=== PATIENT | female | born 1995 | race Caucasian/White ===

== ENCOUNTER 2018-11-09 17:22 | Inpatient (IN) | payer BC, OTHER ==
[~2018-11-09] VITALS: Ht 160 cm; Wt 52.2 kg
--- NOTE | 2018-11-09 17:00 | NUR ---
Preadmission Note: Pt seen in intake office. Pt appears mildly intoxicated but is AO and is able to answer assessment questions. Pt is unorganized and noted with anxiety. Pt states she is here for Heroin, Fentanyl, Methamphetamines. Pt currently c/o nausea and proceeded to vomit in the garbage bin. Pt stated that her current nausea was not a withdrawal symptom and she only felt nauseous because of a smell. BP 116/65 HR 106 RR 16 Pain 0/10. Will admit to [facility].
[2018-11-09] MEDS ORDERED: SRC OPIOID WITHDRAWAL ADMITTING PROTOCOL XX PRN (17:30)
[2018-11-09] MEDS ORDERED: GABA-532 PO (17:37)
[2018-11-09] MEDS ORDERED: LAMO25TA5 PO (17:37)
[2018-11-09] MEDS ORDERED: TRAZ-214 PO (17:39)
[2018-11-09] MEDS ORDERED: HYDR-3026 PO (17:39)
[2018-11-09] MEDS ORDERED: ATOM10CA PO (17:39)
[2018-11-09] MEDS ORDERED: ONDANSETRON 4 MG/2 ML VIAL IM PRN (17:45)
[2018-11-09] MEDS ORDERED: IBUPROFEN 600 MG TABLET PO PRN (17:45)
[2018-11-09] MEDS ORDERED: MIRALAX 17 GM POWD.PACK PO PRN (17:45)
[2018-11-09] MEDS ORDERED: ONDANSETRON ODT 4 MG TAB.RAPDIS SL PRN (17:45)
[2018-11-09] MEDS ORDERED: MAGNESIUM HYDROXIDE 30 ML LIQUID UDC PO PRN (17:45)
[2018-11-09] MEDS ORDERED: LOPERAMIDE HCL 2 MG CAPSULE PO PRN ×2 (17:45)
[2018-11-09] MEDS ORDERED: MAG HYDROX/AL HYDROX/SIMETH 30 ML LIQUID UDC PO PRN (17:45)
[2018-11-09] MEDS ORDERED: diphenhydrAMINE 50 MG CAPSULE PO PRN (17:45)
[2018-11-09] MEDS ORDERED: HYDROXYZINE PAMOATE 25 MG CAPSULE PO PRN (17:45)
[2018-11-09] MEDS ORDERED: ACETAMINOPHEN 325 MG TABLET PO PRN (17:45)
[2018-11-09] MEDS ORDERED: LORAZEPAM 1 MG TABLET PO PRN (18:45)
--- NOTE | 2018-11-09 19:09 | NUR ---
ADMISSION NOTE Pt is a 23 yr old female, AA&Ox4. Pt is presenting herself to [facility] for heroin and Fentanyl use. Pt would also use meth daily. Pt arrived on the unit at 1757. Pt is observed with anxiety m/b pt is observed fidgety. Pts pupils are noted pin point. Pt states she is not going through withdrawal at this time due to last use heroin was at 1500 but states her withdrawal symptoms are hot/cold chills, nausea, vomiting, muscle aches, loss of appetite and stuffy nose. Body check was complete; Pt is noted with track archer on both AC and a superficial healing burn albert on left forearm 2cm x 1cm. Pt states she was at [facility] on 11/02/18 for Sepsis and was given IV antibiotics and IV fluids. Pt states she was in there for 3 days. Pt states she has PMH of Sepsis on 11/02/18, Herpes Simplex 2, OCD, PTSD, ADHD, Anxiety and Depression and is prescribed Gabapentin, Lamictal, Strattera, and Trazodone. All home medication was reconciled. Pt states she has Sx hx of Tonsillectomy at the age of 14. Pt also states of overdosing x1 and was given Narcan from her friends. Pt states of suicide ideation 2016 and was taken to [facility] by her mother for detox. Pt states, I was super depressed and suicidal that they placed me on 5150. Pt denies any suicide attempt but pt states I used to self inflict when I was young. Pt currently denies any SI at this time. Pt denies any PCP or Psychiatrist. Pt denies any hx of sz. Substance use: 1. Fentanyl Pt states she started using Fentanyl 3 months ago via smoke or IV. Pt verbalized of using 0.5g IV/Smoke daily. Last use was 11/08/18 at 2200. Pt states I dont know how much but it was probably less than 0.5g. 2. Heroin- Pt states she began smoking or using IV heroin when she was 19 yrs old. Pt states for the past 3 months she has been either smoking or using IV heroin 1-1.5g daily. Last use was today on 11/09/18 at 1500, pt states she used 0.5gIV. 3. Meth Pt states she began using Meth either via smoked or IV since she was 20 yrs old. Pt states for the past 3 months she has been using 1g of Meth via smoke/IV. Last use was today 11/09/18 at 1500, pt states she used 0.25g IV. Pt states she has been in multiple treatments including [facility] 3 years and was sober for 7 months which was her longest sobriety. Pt then relapsed and went in and out of [facility] for 2 years. Pt states last treatment center was [facility] in July 2018 and was inpatient for 1 month then was transferred to [facility] for another month. Pt states she relapsed because she felt lonely and isolated. Pt states she wants to get sober since using substances has affected her relationship with her family and states, they kicked me out and cut me off. Pt states she has been homeless and unemployed. Pt states, Im fed up and miserable and homeless. Pt verbalized her goal after treatment is to get a job and get back into society. Reported to Dr. العلي with new order for PRN Subutex for s/s of w/d. New order was noted and carried out. Pt is on fall precautions. Pt was educated on medication regimen and plan of care. Pt was able to verbalize understanding. Safety precautions observed. Call light is within reach. Addendum: 11/09/18 at 2011 by JUAN DOWNING LVN Clarification: Pt states she was using Xanax 1mg once a week for the past 2 months. Last use was on 11/07/18, pt states she used 1mg PO. Pt also states she Bariatric Surgery at the age of [age] years old.
[2018-11-09 20:00] VITALS: BP 99/54
--- NOTE | 2018-11-09 20:00 | NUR ---
Start of Shift Patient asleep on bed, arousable, noted to have some intoxication from substances. Patient with lethargy, appears guarded and with low energy. Patient also noted to be anxious and disheveled. She avoids eye contact and speaks in a soft voice. Patient verbalized wanting to rest. No c/o pain at this time. Fall, universal, seizure and safety prec in place. Call light within reach. Last COWS=4. Will continue to monitor.
[2018-11-09] MEDS: TRAZODONE 100 MG TABLET PO SCH (21:18)
[2018-11-10] VITALS: BP 92/61
--- NOTE | 2018-11-10 | NUR ---
COWS=5 Patient continues to be melancholic and depressed. No suicidal ideation noted. Patient also appears to have low energy, with flat affect and avoids conversation and eye contact.
[2018-11-10 03:12] LABS: BASOPHILS % (AUTO) 0.3 % (0.0-2.0); EOSINOPHILS # (AUTO) 0.1 K/uL (0.0-0.7); EOSINOPHILS % (AUTO) 1.4 % (0.0-7.0); HEMATOCRIT 39.2 % (31.2-41.9); HEMOGLOBIN 13.2 g/dL (10.9-14.3); LYMPHOCYTES % (AUTO) 62.1 % (20.5-51.5); MEAN CORPUSCULAR HEMOGLOBIN 29.4 uug (24.7-32.8); MEAN CORPUSCULAR HGB CONC 34 g/dL (32.3-35.6); MEAN CORPUSCULAR VOLUME 87.4 fL (75.5-95.3); MONOCYTES # (AUTO) 0.4 K/uL (2.0-10.0); MONOCYTES % (AUTO) 7.3 % (0.0-11.0); NEUTROPHILS # (AUTO) 1.4 K/uL (1.8-8.9); NEUTROPHILS % (AUTO) 28.9 % (38.5-71.5); PLATELET COUNT (AUTO) 388 K/uL (179-408); RED BLOOD CELL COUNT(AUTO) 4.48 MIL/uL (3.63-4.92); WHITE BLOOD COUNT (AUTO) 4.9 K/uL (3.8-11.8)
[2018-11-10 03:19] LABS: *URINE HCG, QUAL NEGATIVE (NEGATIVE)
[2018-11-10 03:24] LABS: *AMPHETAMINE, URINE POSITIVE (NEGATIVE); *BARBITURATE, URINE NEGATIVE (NEGATIVE); *CANNABINOID, URINE POSITIVE (NEGATIVE); *COCCAINE, URINE NEGATIVE (NEGATIVE); *OPIATE, URINE POSITIVE (NEGATIVE); *PHENCYCLIDINE SCREEN,URINE NEGATIVE (NEGATIVE)
[2018-11-10 03:28] LABS: ALANINE AMINOTRANSFERASE 24 U/L (14-59); ALKALINE PHOSPHATASE 94 U/L (50-136); ASPARTATE AMINOTRANSFERASE 19 U/L (15-37); BILIRUBIN,TOTAL 0.3 mg/dL (0.2-1.0); CARBON DIOXIDE 31 mmol/L (21-32); CHLORIDE 102 mmol/L (98-107); CREATININE 0.8 mg/dL (0.6-1.3); GLUCOSE 109 mg/dL (74-106); MAGNESIUM 1.9 mg/dL (1.8-2.4); POTASSIUM 4.1 mmol/L (3.5-5.1); TOTAL PROTEIN, SERUM 7.8 g/dL (6.4-8.2); UREA NITROGEN, BLOOD 15 mg/dL (7-18)
[2018-11-10] MEDS: METHOCARBAMOL 750 MG TABLET PO PRN ×2 (03:30→17:30)
[2018-11-10] MEDS: BUPRENORPHINE HCL 2 MG TAB.SUBL SL PRN ×2 (03:30→10:02)
--- NOTE | 2018-11-10 03:30 | NUR ---
PRN Subutex and Robaxin Patient c/o increasing anxiety and with piloerection and tremors noted. Patient also verbalized generalized muscle pain=7/10. COWS=14. Administered Subutex 4 mg SL PRN and Robaxin 750 mg PO PRN. Will reassess.
[2018-11-10 03:31] LABS: ETHANOL < 3 MG/DL (0-0)
[2018-11-10 04:00] VITALS: BP 101/64
--- NOTE | 2018-11-10 04:00 | NUR ---
Subutex reassess Patient verbalized relief from anxiety and is noted to have less tremors. COWS=7.
--- NOTE | 2018-11-10 04:30 | NUR ---
Flacoaxin reassess Patient verbalized that pain level=2/10.
[2018-11-10] MEDS: CLONIDINE HCL 0.1 MG TABLET PO PRN ×2 (06:08→17:30)
--- NOTE | 2018-11-10 06:09 | NUR ---
PRN Motrin and Clonidine Patient c/o headache=6/10 and restlessness and anxiety. Administered Motrin 600 mg PO PRN and Clonidine 0.1 mg PO PRN. Will reassess.
--- NOTE | 2018-11-10 07:08 | NUR ---
Motrin and Clonidine reassess Patient's pain level=3/10 and verbalized "some" relief from anxiety and restlessness.
--- NOTE | 2018-11-10 07:16 | NUR ---
End of Shift Patient continues to appear guarded and avoidant with conversation. Patient also noted to be anxious and disheveled. She verbalized having intermittent nausea and is noted to be melancholic. PRN Subutex, Robaxin, Clonidine and Motrin administered during the shift. Fall, universal, seizure and safety prec in place. Call light within reach. Last COWS=7 and slept for 9 hours. Endorsed to AM shift nurse for continuity of care.
--- NOTE | 2018-11-10 07:40 | NUR ---
START OF SHIFT Pt is a 23 yr old female, A&Ox4. pt was admitted on 11/09/18 for Opiate withdrawal and is on PRN's for s/s of w/d. Received report from welder 2nd shift nurse. Pt received Subutex PRN, Robaxin PRN, Clonidine PRN and Motrin PRN during the night. Medication was effective. Last COWS score was 7. Pt slept for 9 hrs. Pt is currently in bed sleeping with respirations even and unlabored. Pt is noted with restless legs. Skin is intact, warm and clammy to touch. Multiple open bottles of fluid is noted at bedside table. Pt is on fall precautions. Call light is within reach. Will continue to monitor.
[2018-11-10 08:07] VITALS: BP 90/43
[2018-11-10] MEDS ORDERED: TUBERCULIN,PURIF.PROT.DERIV. 5 TU/0.1 ML TEST ID ONE (09:00)
[2018-11-10] MEDS: MULTIVITAMINS,THERAPEUTIC TABLET PO SCH (10:02)
--- NOTE | 2018-11-10 10:02 | NUR ---
PRN GIVEN Pt was c/o anxiety, agitation, sweats, cold chills, muscle aches and stuffy nose. Pt is noted with fine tremors on BUE. COWS score was 13. Pt was given Subutex 4mg SL PRN as ordered. Encouraged increase fluid intake. Will continue to monitor.
--- NOTE | 2018-11-10 11:02 | NUR ---
PRN RE-ASSESSMENT Subutex 4ml SL PRN was effective. COWS score is 9. Pt continues to c/o anxiety, body aches and chills but states "I feel better now". Will continue to monitor.
[2018-11-10 12:00] VITALS: BP 96/63
--- NOTE | 2018-11-10 12:00 | NUR ---
COWS ASSESSMENT Pt is c/o anxiety, body aches, sweats, chills and stuffy nose. COWS score is 11. Encourage increase fluid intake. Will continue to monitor.
--- NOTE | 2018-11-10 12:18 | NUR ---
Therapist prompted client to attend group therapy.
[2018-11-10] MEDS ORDERED: 5 DAY TAPER BUPRENORPHINE -SERENITY PROTOCOL SL PRN (12:45)
[2018-11-10] MEDS: BUPRENORPHINE HCL 2 MG TAB.SUBL SL SCH ×3 (13:40→20:43)
[2018-11-10] MEDS: GABAPENTIN 300 MG CAPSULE PO SCH ×2 (14:46→17:30)
[2018-11-10] MEDS: buPROPion XL 150 MG TAB.SR.24H PO SCH (14:46)
[2018-11-10 16:00] VITALS: BP 121/74
--- NOTE | 2018-11-10 17:30 | NUR ---
PRN GIVEN Pt was c/o increase anxiety, sweats, chills, restlessness, and muscle aches. Pt was given Clonidine 0.1mg PO PRN and Robaxin 750mg PO PRN as ordered. Encouraged increase fluid intake. COWS score was 14. Will continue to monitor.
--- NOTE | 2018-11-10 19:10 | NUR ---
END OF SHIFT Pt is a 23 yr old female, AA&Ox4. Pt was admitted on 11/09/18 for Opiate withdrawal and started on 5 day Subutex taper as ordered. Pt has been cooperative with medication regimen and plan of care. Pt was observed attending group therapy. Pt was c/o increase anxiety, agitation, restlessness, muscle aches, cold/hot chills, stuffy nose and teary eyes. Pt was observed with fine tremors on BUE, fidgety, restless legs and observed with flat affect. Pt was given Subutex 4mg SL PRN in the morning for COWS score of 13 and Clonidine PRN, and Robaxin at 1730. Medication was effective. Pt was encouraged increase fluid intake. Endorsed to dependency counselor nurse to continue with care.
--- NOTE | 2018-11-10 19:30 | NUR ---
Start of shift note Patient is a 23 year old female admitted on 11/09/18 for medically supervised for opiate withdrawal. Pt is on fall precautions. Pt is on a 5 day Subutex taper started today 11/10/18. Pt's last COWS was 14. Per endorsement pt had PRN Subutex, Clonidine and Robaxin. Pt has been participating in group. Upon rounds pt was noted in bed resting, explain plan of care and she verbalized understanding. Pt is withdrawn, cooperative, depressed and flat affect. Safety measures are in place bed locked in low position, side rails up x2 and call light within reach. Will continue to monitor.
[2018-11-10 20:00] VITALS: BP 97/48
--- NOTE | 2018-11-10 20:00 | NUR ---
COWS Assessment Pt is presenting with withdrawal s/s: tremors, cold and cold flashes, chills, and runny nose. Pt's COWS is 12. Safety measures in place will continue to monitor.
[2018-11-10] MEDS: LAMOTRIGINE 25 MG TABLET PO SCH (20:43)
[2018-11-10] MEDS: TRAZODONE 100 MG TABLET PO SCH (20:43)
--- NOTE | 2018-11-10 20:43 | NUR ---
PRN Benadryl Pt is presenting with mild erythema on left arm, pt stated "my watch irritated my arm". Administered PRN Benadryl and she tolerated well. Will continue to monitor.
--- NOTE | 2018-11-10 21:43 | NUR ---
PRN Benadryl Reassessment Pt had decreased erythema and no itching was present. Pt stated medication was helpful. Safety measures in place will continue to monitor.
--- NOTE | 2018-11-11 | NUR ---
COWS Deferred Patient is resting in bed with eyes closed, breathing is even and unlabored. Per protocol COWS is to be assessed while pt is awake. Safety measures in place and will continue to monitor.
--- NOTE | 2018-11-11 07:12 | NUR ---
End of shift note Patient is a 23 year old female admitted on 11/09/18 for medically supervised for opiate withdrawal. Pt is on fall precautions. Pt is on a 5 day Subutex taper started today 11/10/18. Pt's last COWS was 12. Pt had PRN Benadryl. Pt was compliant with plan of care. Pt slept for 9 hours and had a total intake 1,153 ml. Pt voided x3 and had no bowel movements during this shift. Safety measures are in place bed locked in low position, side rails up x2 and call light within reach. Will endorse to day shift.
--- NOTE | 2018-11-11 07:40 | NUR ---
START OF SHIFT 305 Received report from security shift supervisor nurse. Pt is lying in bed resting and easily arousable. She is a 23 yo female admitted to [facility] on 11/09 for Opiate withdrawal. She is A&O and ambulatory. She is on day 2 of a 5 day Subutex taper. She received PRN Benadryl on security shift supervisor. Last COWS was 12 and she slept for 9 hours. Safety measures in place.
[2018-11-11 08:00] VITALS: BP 110/67
[2018-11-11 08:06] LABS: HEPATITIS B SURFACE AG Negative (Negative)
--- NOTE | 2018-11-11 09:04 | NUR ---
COWS Pt has leg aches, chills, difficulty sitting still, dilated pupils, runny nose, and goose bumps. Her affect is flat and mood depressed. COWS score 12.
[2018-11-11] MEDS: MULTIVITAMINS,THERAPEUTIC TABLET PO SCH (09:11)
[2018-11-11] MEDS: buPROPion XL 150 MG TAB.SR.24H PO SCH (09:11)
[2018-11-11] MEDS: GABAPENTIN 300 MG CAPSULE PO SCH ×3 (09:11→17:32)
[2018-11-11] MEDS: METHOCARBAMOL 750 MG TABLET PO PRN (09:11)
--- NOTE | 2018-11-11 09:11 | NUR ---
PRN Robaxin Pt reports leg aches 02/16. PRN Robaxin administered.
[2018-11-11] MEDS: BUPRENORPHINE HCL 2 MG TAB.SUBL SL SCH ×3 (09:13→20:33)
--- NOTE | 2018-11-11 10:15 | NUR ---
PRN Robaxin reassessment PRN Robaxin effective. Pt reports body aches are relieved.
[2018-11-11 12:30] VITALS: BP 141/91
--- NOTE | 2018-11-11 12:52 | NUR ---
Therapist prompted client to attend daily group therapy sessions.
[2018-11-11 14:20] VITALS: BP 125/63
[2018-11-11 16:20] VITALS: BP 125/63
--- NOTE | 2018-11-11 19:30 | NUR ---
END OF SHIFT 305 Report provided to maintenance technician 3rd shift nurse. Pt is attending a group meeting. She is a 23 yo female admitted to [facility] on 11/09 for Opiate withdrawal. She is A&O and ambulatory. Today is day 2 of a 5 day Subutex taper. PRN Robaxin administered. Last COWS was 9. Safety measures in place.
--- NOTE | 2018-11-11 19:30 | NUR ---
Start of Shift Patient Received. Patient is a 23 year old female that continues on a modified Subutex taper for signs and symptoms of Opiate withdrawal. Patient received PRN Robaxin for increased body aches with medication noted to be effective. Last noted COWS 9. Upon rounds patient is noted in her room awake alert and verbally responsive. She is noted to be cleaning her room and states "I'm just trying to keep busy." She is noted to be restless, verbalizes racing thoughts, with worried, depressed affect. Patient is able to verbalize increased anxiety, agitation, intermittent body aches, tremors, chills, sweats, and restlessness. Patient is able to verbalize that medication taper has been effective in minimizing signs and symptoms of withdrawal. Reviewed 2100 medications with patient and she was able to verbalize understanding. All needs attended to promptly. Will continue plan of care as ordered.
[2018-11-11 20:29] VITALS: BP 115/67
--- NOTE | 2018-11-11 20:30 | NUR ---
COWS Assessment Patient continues on a modified Subutex taper for signs and symptoms of withdrawal. She appears worried with depressed affect. She is able to verbalize increased anxiety, restlessness, agitation, racing thoughts, intermittent body aches, tremors, chills, sweats, and insomnia. COWS noted to be 11. Routine medications administered as per order. Will continue to monitor.
[2018-11-11] MEDS: LAMOTRIGINE 25 MG TABLET PO SCH (20:32)
[2018-11-11] MEDS: TRAZODONE 100 MG TABLET PO SCH (20:32)
--- NOTE | 2018-11-12 00:06 | NUR ---
COWS Assessment and Vitals Patient is noted in bed with eyes closed. Breathing even and non labored. No signs of restlessness or facial grimacing noted. Vitals refused. COWS not able to be completed as per order. Will continue to monitor.
--- NOTE | 2018-11-12 04:45 | NUR ---
Vitals and COWS Assessment Patient is noted in bed with eyes closed. No signs of restlessness or facial grimacing noted. Breathing even and non labored. Vitals refused. COWS not able to be completed as per order. Will continue to monitor.
--- NOTE | 2018-11-12 07:04 | NUR ---
End of Shift Patient is in bed with eye closed. Breathing even and non labored. No signs of restlessness or facial grimacing noted. Patient is a 23 year old female that continues on a modified Subutex taper for signs and symptoms of Opiate withdrawal. No PRN medications administered. Last noted COWS11. Patient noted to sleep a total of 9 hours. Patient is noted to be restless with worried, depressed affect. Patient is able to verbalize increased anxiety, agitation, intermittent body aches, tremors, chills, sweats, and restlessness. All needs attended to promptly. Will endorse to continue plan of care as ordered.
--- NOTE | 2018-11-12 07:34 | NUR ---
BEGINNING OF SHIFT Patient endorsement report received from night supervisor nurse, all pertinent information was discussed. Patient currently with admitting dx: opiate withdrawal, ongoing 5 day subutex taper as ordered. Patient scheduled to begin day 3 of taper. Last COW score of: 11. Received patient in bed with eyes closed, respirations even and unlabored, responsive to verbal stimuli, will educate patient regarding plan of care for the day and medication regimen. Safety measures are in place. call light with in reach, will continue to monitor closely.
[2018-11-12] MEDS ORDERED: BUPRENORPHINE HCL 2 MG TAB.SUBL SL SCH (09:00)
[2018-11-12 09:16] VITALS: BP 90/60
[2018-11-12] MEDS: buPROPion XL 150 MG TAB.SR.24H PO SCH (09:18)
[2018-11-12] MEDS: GABAPENTIN 300 MG CAPSULE PO SCH ×3 (09:18→17:52)
[2018-11-12] MEDS: MULTIVITAMINS,THERAPEUTIC TABLET PO SCH (09:18)
[2018-11-12 12:46] VITALS: BP 115/73
[2018-11-12] MEDS ORDERED: OXYMETAZOLINE NASAL 0.05% 15 ML SPRAY NS PRN (13:15)
[2018-11-12] MEDS: BUPRENORPHINE HCL 2 MG TAB.SUBL SL SCH ×2 (14:58→21:56)
[2018-11-12 17:08] VITALS: BP 112/70
--- NOTE | 2018-11-12 18:56 | NUR ---
END OF SHIFT Patient continues under close observation, ongoing Subutex taper as ordered, currently on day 3 of taper. Received no PRN medications during shift. Vital signs WNL. Patient was noted the following s/sx of withdrawal during shift: elevated heart rate, c/o chills, difficulty sitting still, enlarged pupils, mild bone and joint aches, tremors that can be felt but not seen, irritable, and anxiety, last COW score of: 9. Received no PRN medications during shift. Continues under close observation, Encouraged to attend group therapies/sessions to learn new coping skills to prevent relapse. Denies SI/HI. Safety measures are in place. Call light kept with in reach, will continue to monitor. Patient endorsed to phone screener nurse, all pertinent information was discussed.
--- NOTE | 2018-11-12 19:30 | NUR ---
Start of Shift Patient Received. Patient is a 24 year old female that continues on a modified Subutex taper for Opiate withdrawals. No PRN medications administered. Last noted COWS 9. Patient has been noted to be compliant with group and social activities. She continues to be monitored for increased anxiety, agitation, intermittent body aches, tremors, chills, sweats, and restlessness. Upon rounds patient is noted in the activities room participating in a group meeting. All needs attended to promptly. Will continue plan of care as ordered.
--- NOTE | 2018-11-12 20:30 | NUR ---
COWS Assessment Patient continues on a modified Subutex taper for signs and symptoms of withdrawal. She appears worried with depressed affect. She is able to verbalize increased anxiety, restlessness, agitation, racing thoughts, tremulous to touch, chills, sweats, and insomnia. COWS noted to be 9. Routine medications to be administered as per order. Will continue to monitor.
[2018-11-12 20:45] VITALS: BP 110/60
[2018-11-12] MEDS: TRAZODONE 100 MG TABLET PO SCH (21:56)
[2018-11-12] MEDS: LAMOTRIGINE 25 MG TABLET PO SCH (21:56)
--- NOTE | 2018-11-13 00:57 | NUR ---
COWS Assessment Patient is noted in bed with eyes closed. Breathing even and non labored. No signs of restlessness or facial grimacing noted. Vitals refused. COWS not able to be completed as per ordered. Will continue to monitor.
--- NOTE | 2018-11-13 04:24 | NUR ---
Vitals and COWS Assessment Patient is noted in bed with eyes closed. No signs of restlessness or facial grimacing noted. Breathing even and non labored. Vitals refused. COWS not able to be completed as per ordered. Will continue to monitor.
--- NOTE | 2018-11-13 07:03 | NUR ---
End of Shift Patient is in bed with eyes closed. Breathing even and non labored. No signs of facial grimacing or restlessness noted. Patient is a 24 year old female that continues on a modified Subutex taper for Opiate withdrawals. No PRN medications administered. Last noted COWS 9. Patient noted to sleep a total of 7 hours. Patient has been noted to be compliant with group and social activities. She continues to be monitored for increased anxiety, agitation, intermittent body aches, tremors, chills, sweats, and restlessness. All needs attended to promptly. Will endorse to continue plan of care as ordered.
--- NOTE | 2018-11-13 07:50 | NUR ---
Start of shift note; Received report from night nurse. Patient is a 23 year old female admitted on 11/09/17 for Opiate withdrawals. Patient was started on a 5 day Subutex taper to help reduce withdrawal symptoms. No PRN medications given. Patient's last COWS score is 9. Patient slept for 7 hours. Patient is currently asleep , respirations of 18. All safety measures secured. Will closely monitor patient.
[2018-11-13 08:00] VITALS: BP 96/62
--- NOTE | 2018-11-13 08:00 | NUR ---
CIWA assessment; Patient is AOX4, patient's current CIWA is 10 manifested by intermittent sweats, anxiety, agitation, tremors, stomach cramps and fatigue. Patient remains on Subutex taper to help reduce withdrawal symptoms. All safety measures secured. Will continue to monitor patient. Addendum: 11/13/18 at 1239 by KINGS MCKEON RN Clarification: COWS score of 9
[2018-11-13] MEDS: buPROPion XL 150 MG TAB.SR.24H PO SCH (09:30)
[2018-11-13] MEDS: BUPRENORPHINE HCL 2 MG TAB.SUBL SL SCH ×3 (09:30→20:51)
[2018-11-13] MEDS: MULTIVITAMINS,THERAPEUTIC TABLET PO SCH (09:30)
[2018-11-13] MEDS: GABAPENTIN 300 MG CAPSULE PO SCH ×3 (09:30→17:15)
[2018-11-13 12:00] VITALS: BP 110/68
[2018-11-13] MEDS: METHOCARBAMOL 750 MG TABLET PO PRN (12:19)
--- NOTE | 2018-11-13 12:19 | NUR ---
PRN medication; Patient is complaining of muscle aches, PRN Robaxin 750mg PO given for muscle aches. Will continue to monitor patient.
[2018-11-13] MEDS ORDERED: ACYCLOVIR 200 MG CAPSULE PO SCH (13:00)
--- NOTE | 2018-11-13 13:19 | NUR ---
Re-assessment; Patient verbalized improvement of muscle aches. PRN Robaxin noted to be effective.
[2018-11-13] MEDS: ACYCLOVIR 200 MG CAPSULE PO SCH ×2 (13:57→20:51)
[2018-11-13 16:00] VITALS: BP 112/88
--- NOTE | 2018-11-13 18:39 | NUR ---
End of shift note; Patient is AOX4, patient's last COWS score is 9 manifested by intermittent sweats, anxiety, agitation, tremors, stomach cramps and fatigue. Medications were effective in reducing withdrawal symptoms. Patient received PRN Robaxin for muscle aches noted to be effective. Patient remained compliant with treatment plan and medication regime. Patient participated in group activities and therapies. All safety measures secured. Met all needs.
--- NOTE | 2018-11-13 19:30 | NUR ---
START OF SHIFT Patient is a 23-year-old female admitted on 11/09/18 for opiate withdrawal. Patient is currently on a 5-day Subutex taper, tolerating well; last dose scheduled for tomorrow morning. Patient's last COWS was 9 per endorsement. Patient received PRN Robaxin today, noted to be effective. Upon assessment, patient is anxious and restless. Patient complains of difficulty sleeping and and mild nausea with no emesis, but states that she will notify nurse if nausea worsens. Patient continues to receive oral antivirals for active herpes simplex 2. Patient is on fall precautions with no prior history of seizure activity. Safety measures in place, side rails up x2, bed locked in low position, call light within reach. Will continue to monitor.
[2018-11-13 20:00] VITALS: BP 103/61
[2018-11-13] MEDS: TRIAMCINOLONE ACET 0.025% OINT 15 GM TUBE TOP PRN (20:50)
--- NOTE | 2018-11-13 20:50 | NUR ---
PRN TRIAMCINOLONE CREAM Patient reports mild inflammation and itching at left wrist. PRN Triamcinolone cream given to patient for topical application, as ordered. Safety measures in place, side rails up x2, bed locked in low position, call light within reach. Will monitor for effectiveness.
[2018-11-13] MEDS: TRAZODONE 100 MG TABLET PO SCH (20:51)
[2018-11-13] MEDS: LAMOTRIGINE 25 MG TABLET PO SCH (20:51)
--- NOTE | 2018-11-13 21:50 | NUR ---
PRN TRIAMCINOLONE CREAM REASSESSMENT Patient reports itching has subsided. PRN Triamcinolone cream noted to be effective. Safety measures in place, side rails up x2, bed locked in low position, call light within reach. Will continue to monitor.
[2018-11-14] VITALS: BP 108/64
--- NOTE | 2018-11-14 04:00 | NUR ---
VITALS REFUSED Patient refused vitals at 0400. Respirations even and unlabored, 16/min. safety measures in place, bed locked in low position, side rails up x2, call light within reach. Will continue to monitor.
--- NOTE | 2018-11-14 07:15 | NUR ---
END OF SHIFT Patient is a 23-year-old female admitted on 11/09/18 for opiate withdrawal. Patient is currently on a 5-day Subutex taper, tolerating well; last dose will be this morning. Patient's last COWS was 12. Patient received PRN Triamcinolone cream during the shift, noted to be effective. Patient slept for 9 hrs, total intake of 1,390 mL, void x4, stool x1. Patient continues to receive oral antivirals for active herpes simplex 2. Patient is on fall precautions with no prior history of seizure activity. Safety measures in place, side rails up x2, bed locked in low position, call light within reach. Will endorse to day shift.
--- NOTE | 2018-11-14 07:50 | NUR ---
START OF SHIFT Endorse rcvd from ongoing nurse, client is in bed, in high fowlers position, a/o x 4, she presents with depressed mood, dark circles under eyes, dry lips, avoidant gaze, tremors, and difficulty concentrating. Client reports depression, poor appetite, anhedonia, cold/chills, body aches, restless legs, and difficulty thinking clearly. Encouraged client to attend group therapy to learn skills to maintain sober. Client had an uneventful night, she slept 9 hrs. Client is os last of 5 day Subutex taper taper. Last COWS 12 @ 1999. [place] precautions. Side rails x 2 up. Call light within reach. Will continue to monitor.
[2018-11-14 08:14] VITALS: BP 100/60
[2018-11-14] MEDS ORDERED: BUPRENORPHINE HCL 2 MG TAB.SUBL SL SCH (09:00)
--- NOTE | 2018-11-14 09:33 | NUR ---
PRN Triamcinolone Acet 0.025% to L wrist for skin inflammation. Will continue to monitor.
[2018-11-14] MEDS: ACYCLOVIR 200 MG CAPSULE PO SCH ×2 (09:34→20:37)
[2018-11-14] MEDS: TRIAMCINOLONE ACET 0.025% OINT 15 GM TUBE TOP PRN ×2 (09:34→20:36)
[2018-11-14] MEDS: buPROPion XL 150 MG TAB.SR.24H PO SCH (09:34)
[2018-11-14] MEDS: GABAPENTIN 300 MG CAPSULE PO SCH ×3 (09:34→16:23)
[2018-11-14] MEDS: MULTIVITAMINS,THERAPEUTIC TABLET PO SCH (09:34)
--- NOTE | 2018-11-14 09:34 | NUR ---
COWS 12 Client presents with depressed mood, dark circles under eyes, dry lips, avoidant gaze, tremors, and difficulty concentrating. Client reports depression, poor appetite, anhedonia, cold/chills, body aches, restless legs, and difficulty thinking clearly. Schedule Subutex 2mg SL administered. Will continue to monitor. Call light within reach.
--- NOTE | 2018-11-14 10:33 | NUR ---
Reassess PRN Triamcinolone Acet 0.025%, client reports no change on L wrist skin inflammation. Will continue to monitor.
[2018-11-14 12:46] VITALS: BP 105/60
--- NOTE | 2018-11-14 12:49 | NUR ---
COWS 9 Client reports anxiety, poor appetite, chills/cold, difficulty concentrating, difficulty thinking clearly, generalized body aches, clamming, yawning, and fatigue.No-pharmacologic measures rendered. Call light within reach. Will continue to monitor.
--- NOTE | 2018-11-14 16:23 | NUR ---
COWS 8 Client continues to presents with anxiety, tremors felt, irritability, yawning, stomach cramps, poor appetite, and fatigue. Gabapentin 300mg PO administered.Call light within reach.
[2018-11-14 16:44] VITALS: BP 102/61
--- NOTE | 2018-11-14 19:13 | NUR ---
END OF SHIFT Endorse client to incoming nurse, client is in room, a/o x 4, client continues to presents with anxiety, tremors felt, irritability, yawning, stomach cramps, poor appetite, and fatigue. Client denies N/V/D. Client completed 5 day Subutex taper. Last COWS 8 @ 1600. Client is schedule for discharge tomorrow am to [facility] for continuity of treatment. Client is compliant with group therapy. Consumes 50-75% of meals. Adequate PO fluid intake 2051mL, void x 3. Call light within reach.
--- NOTE | 2018-11-14 19:30 | NUR ---
START OF SHIFT Patient is a 23-year-old female admitted on 11/09/18 for opiate withdrawal. Patient has completed a on a 5-day Subutex taper with the last dose this morning, tolerated taper well. Patient is scheduled for discharge tomorrow morning. Patient's last COWS was 8 per endorsement. Patient received no PRN medications during day shift. Upon assessment, patient is anxious about discharge but verbalizes readiness and eagerness. Patient complains of difficulty sleeping and some mild irritation of left wrist skin rash, requesting PRN Triamcinolone cream with scheduled night meds. 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 Patient is on fall precautions with no prior history of seizure activity. Safety measures in place, side rails up x2, bed locked in low position, call light within reach. Will continue to monitor.
[2018-11-14 20:00] VITALS: BP 118/58
[2018-11-14] MEDS: TRAZODONE 100 MG TABLET PO SCH (20:36)
--- NOTE | 2018-11-14 20:36 | NUR ---
PRN TRIAMCINOLONE CREAM Patient reports itchiness at left wrist rash site. PRN Triamcinolone cream applied topically to left wrist. Safety measures in place, side rails up x2, bed locked in low position, call light within reach. Will monitor for effectiveness.
[2018-11-14] MEDS: LAMOTRIGINE 25 MG TABLET PO SCH (20:37)
--- NOTE | 2018-11-14 21:36 | NUR ---
PRN TRIAMCINOLONE CREAM REASSESSMENT Patient reports that her left wrist no longer itches. PRN Triamcinolone cream noted to be effective. Safety measures in place, side rails up x2, bed locked in low position, call light within reach. Will continue to monitor.
[2018-11-15] VITALS: BP 106/62
--- NOTE | 2018-11-15 04:00 | NUR ---
VITALS REFUSED Patient refused vital signs at this time. Respirations even and unlabored, 16/min. Safety measures in place, side rails up x2, bed locked in low position, call light within reach. Will continue to monitor.
--- NOTE | 2018-11-15 07:10 | NUR ---
END OF SHIFT Patient is a 23-year-old female admitted on 11/09/18 for opiate withdrawal. Patient has completed a 5-day Subutex taper yesterday, tolerated well, scheduled for discharge this morning. Patient's last COWS was 8. Patient received PRN Triamcinolone cream for her left wrist, noted to be effective. Patient slept for 8 hours, total intake of 573mL, void x1, stool x0. 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 Patient is on fall precautions with no prior history of seizure activity. Safety measures in place, side rails up x2, bed locked in low position, call light within reach. Will endorse to day shift.
--- NOTE | 2018-11-15 07:30 | NUR ---
start of shift note: received pt from scene shifter nurse, pt is in stable condition at this time, no s/s of pain or discomfort at this time. pt is set to discharge today. pt's last documented cows 8 and pt slept for 8 hours. will assist pt in discharging today and will monitor pt for any changes.
[2018-11-15] MEDS: buPROPion XL 150 MG TAB.SR.24H PO SCH (08:40)
[2018-11-15] MEDS: MULTIVITAMINS,THERAPEUTIC TABLET PO SCH (08:41)
[2018-11-15] MEDS: ACYCLOVIR 200 MG CAPSULE PO SCH (08:41)
[2018-11-15] MEDS: GABAPENTIN 300 MG CAPSULE PO SCH (08:41)
[2018-11-15] MEDS ORDERED: TRAZ-214 PO (08:45)
[2018-11-15] MEDS ORDERED: TRIA15OI10 TOP (08:45)
[2018-11-15] MEDS ORDERED: BUPR-96 PO (08:45)
[2018-11-15] MEDS ORDERED: ACYC200C PO (08:45)
[2018-11-15] MEDS ORDERED: LAMO25TA5 PO (08:45)
[2018-11-15] MEDS ORDERED: GABA-534 PO (08:45)
[2018-11-15] MEDS ORDERED: METH-406 PO (08:45)
[2018-11-15] MEDS: TRIAMCINOLONE ACET 0.025% OINT 15 GM TUBE TOP PRN (08:46)
--- NOTE | 2018-11-15 09:30 | NUR ---
discharge note: pt left the unit in stable condition no s/s of pain or discomfort, pt received zofran during medication administration, and pt verbalized it was with help. pt teaching was administered and pt verbalized understanding. all personal belongings were returned and pt will be transferred to [facility] [place] via private transportation.
[2018-11-15] MEDS ORDERED: NALO4SPR NS (11:00)
== END 2018-11-15 09:30 | disposition home or self-care (01) | DRG 895 ==
LOC: SRC 17:22
PROVIDERS: ADMIT Family Medicine Addiction Medicine; ATTEND Family Medicine Addiction Medicine
PROC: HZ2ZZZZ Detoxification Services for Substance Abuse Treatment (ICD-10-PCS; principal; 2018-11-09)
PROC: HZ41ZZZ Group Counseling for Substance Abuse Treatment, Behavioral (ICD-10-PCS; 2018-11-10)
PROC: HZ31ZZZ Individual Counseling for Substance Abuse Treatment, Behavioral (ICD-10-PCS; 2018-11-10)
PROC: HZ59ZZZ Individual Psychotherapy for Substance Abuse Treatment, Supportive (ICD-10-PCS; 2018-11-13)
DX: F11.23 Opioid dependence with withdrawal (principal); F31.30 Bipolar disorder, current episode depressed, mild or moderate severity, unspecified; F41.1 Generalized anxiety disorder; F15.23 Other stimulant dependence with withdrawal; F17.210 Nicotine dependence, cigarettes, uncomplicated; F90.9 Attention-deficit hyperactivity disorder, unspecified type; F42.9 Obsessive-compulsive disorder, unspecified; Z59.0 Homelessness; L23.9 Allergic contact dermatitis, unspecified cause; Z81.8 Family history of other mental and behavioral disorders; Z98.84 Bariatric surgery status; A60.00 Herpesviral infection of urogenital system, unspecified; F43.10 Post-traumatic stress disorder, unspecified; Z63.9 Problem related to primary support group, unspecified; J30.9 Allergic rhinitis, unspecified; G47.00 Insomnia, unspecified; Z79.899 Other long term (current) drug therapy; Z87.898 Personal history of other specified conditions; Z81.4 Family history of other substance abuse and dependence
CPT/HCPCS: 36415; 70030-TC; 80307; 80324; 80349; 80361; 83735; 84443; 84703; 85025; 86580; 86592; 86705; 86803; 87340; 87806; A4663; G0480; Q0162; Q0163